=== PATIENT | female | born 1935 | race Caucasian/White ===

== ENCOUNTER 2022-09-09 08:32 | Observation (INO) | payer MEDICARE ==
[2022-09-09] MEDS ORDERED: SODIUM CHLORIDE 0.9% 1,000 ML IV STA (09:19)
[2022-09-09] MEDS ORDERED: SODIUM CHLORIDE 0.9% 500 ML 500 ML IV STA (09:26)
[2022-09-09 09:30] LABS: Basophils # (A) 0.1 k/uL (0-0.2); Basophils % (A) 1 %; Eosinophils # (A) 0.3 k/uL (0-0.7); Eosinophils % (A) 4 %; HCT 34.4 % (34.0-46.0); HGB 11.6 gm/dL (11.4-16.0); Lymphocytes # (A) 1.4 k/uL (1.0-4.8); Lymphocytes % (A) 23 %; MCH 32.6 pg (25.0-35.0); MCHC 33.8 g/dL (31.0-37.0); MCV 96.5 fL (80.0-100.0); Mean Platelet Volume 9.4; Monocytes # (A) 0.5 k/uL (0-1.0); Monocytes % (A) 9 %; Neutrophils # (A) 3.8 k/uL (1.3-7.7); Neutrophils % (A) 62 %; Platelet Count 236 k/uL (150-450); RBC 3.56 m/uL (3.80-5.40); RDW 15.1 % (11.5-15.5); WBC 6.1 k/uL (3.8-10.6)
--- NOTE | 2022-09-09 09:31 | ED ---
General Adult HPI - General Chief complaint: Dizziness Stated complaint: Dizzy, weakness Time Seen by Provider: 09/09/22 09:05 Source: patient, family, RN notes reviewed, old records reviewed Mode of arrival: ambulatory Limitations: no limitations - History of Present Illness Initial comments: Patient is an 87-year-old female who presents emergency Department complaining of continued lightheadedness/dizziness. Just was discharged from another hospital after staying for over a week for workup. Patient's daughter presents with the patient help with history. She states that they did do CT imaging the brain, and a thorough workup and found no obvious cause for the patient's dizziness/lightheadedness. Is discharged home. Symptoms continue which is why she presents today. Past medical history includes hypertension, congestive heart failure. No known history of atrial fibrillation. Not on blood thinners. No falls. Describes the dizziness as more of a lightheaded feeling, states it is worse when she sits up and stands up. It comes and goes with no known provocative or palliative factors other than lying down improves it. Describes it as a head heavy sensation. Denies any room spinning sensation. Denies any other associated symptoms. States she and her minimally does have some mild blurry vision in both eyes which resolves as well. Denies any headaches. Denies any nasal congestion. Denies any ear pain. Denies sore throat. Denies fevers, chills, cough, sick contacts. Denies any chest pain or shortness of breath. Denies any abdominal pain, nausea, vomiting. Patient intermittently does get abdominal pain and is due to have her gallbladder removed, however this is more of an outpatient process and is due to follow up with Dr. Tracy. Family specifically requests that Dr. Andre not be consulted. No other acute com plaints at this time. Patiently presents today over concern for continued symptoms which never resolved after previous admission to the hospital. We're currently approximately 3-4 weeks into symptom onset.Patient currently is asymptomatic. - Related Data Allergies Allergy/AdvReac Type Severity Reaction Status Date / Time No Known Allergies Allergy Verified 09/09/22 08:40 Review of Systems ROS Statement: Those systems with pertinent positive or pertinent negative responses have been documented in the HPI. Review of Systems: CONST: Denies fever EYES: Denies blurry vision ENT: Denies nasal congestion C/V: Denies Chest pain RESP: Denies shortness of breath GI: Denies abdominal pain : Denies dysuria SKIN: Denies rash. MSK: Denies joint pain. NEURO: Denies headache ROS Other: All systems not noted in ROS Statement are negative. Past Medical History Past Medical History: Hyperlipidemia, Hypertension History of Any Multi-Drug Resistant Organisms: None Reported Past Surgical History: No Surgical Hx Reported Past Psychological History: No Psychological Hx Reported Smoking Status: Current every day smoker Past Alcohol Use History: None Reported Past Drug Use History: None Reported General Exam - General Exam Comments Initial Comments: General: Appears in no acute distress. HEAD: Normal with no signs of head trauma. EYES: PERRLA, EOMI, conjunctiva normal, no discharge. Pupils 2 mm and equal bilaterally. ENT: Hearing grossly intact, normal oropharynx. RESPIRATORY: Clear breath sounds bilaterally. No wheezes, rales, or rhonchi. C/V: Irregular rate and rhythm. S1 and S2 auscultated, no edema, peripheral pulses 2+ and intact throughout ABD: Abd is soft, nontender, nondistended EXT: Normal range of motion, no obvious deformity SKIN: No rashes or lesions observed on exposed skin. NEURO: Alert and oriented x 4. Cranial nerves II-XII intact. No focal sensory or strength deficits. GCS of 15. NIH of 0. Limitations: no limitations Course Vital Signs 09/09/22 09/09/22 08:37 09:30 Temperature 97.7 F Pulse Rate 105 H 87 Respiratory 20 Rate Blood Pressure 149/73 153/93 O2 Sat by Pulse 97 98 Oximetry Medical Decision Making - Medical Decision Making Based on the patient's presentation and physical exam, patient appears to be experiencing lightheadedness sensation which was thoroughly worked up at another hospital with no clear etiology. Presents today with continued symptoms. Screening EKG done in triage shows atrial fibrillation which appears to be new onset as the patient has no known history of that. Vital signs are otherwise within acceptable limits. We will obtain cardiopulmonary labs as well as chest x-ray, screening CT due to the Lauren fib findings. We will attempt to obtain records from the other hospital as well. She was in agreement this plan. Currently is asymptomatic. No known contraindications to blood thinner medications. EKG shows atrial fibrillation, rate controlled.Chest x-ray shows no acute cardiopulmonary process. Brain CT shows atrophy with white matter ischemic changes, recommend MRI as clinically indicated. Laboratory studies are remarkable for an undetectable troponin. Covid is negative. Urinalysis is still pending at this time. Remainder the labs are unremarkable. Patient will be given an aspirin. At this time we did discuss that her new onset atrial fibrillation is likely cause of her symptoms. She will be admitted for evaluation by cardiology. She was in agreement this plan. She has no contraindications to anticoagulation at this time and will be started on heparin drip until further evaluated by cardiology. She was in agreement with this plan as well. Remains asymptomatic at this time. Cardiology was consulted. I did speak with Dr. East who is covering for Dr. Waggoner and was the patient's physician while at the other hospital, was in agreement with the admission. - Lab Data Result diagrams: 09/09/22 09:22 09/09/22 09:22 Lab Results 09/09/22 09/09/22 09/09/22 Range/Units 09:22 09:22 09:22 WBC 6.1 (3.8-10.6) k/uL RBC 3.56 L (3.80-5.40) m/uL Hgb 11.6 (11.4-16.0) gm/dL Hct 34.4 (34.0-46.0) % MCV 96.5 (80.0-100.0) fL MCH 32.6 (25.0-35.0) pg MCHC 33.8 (31.0-37.0) g/dL RDW 15.1 (11.5-15.5) % Plt Count 236 (150-450) k/uL MPV 9.4 Neutrophils % 62 % Lymphocytes % 23 % Monocytes % 9 % Eosinophils % 4 % Basophils % 1 % Neutrophils # 3.8 (1.3-7.7) k/uL Lymphocytes # 1.4 (1.0-4.8) k/uL Monocytes # 0.5 (0-1.0) k/uL Eosinophils # 0.3 (0-0.7) k/uL Basophils # 0.1 (0-0.2) k/uL PT 10.6 (9.0-12.0) sec INR 1.0 (<1.2) APTT 22.9 (22.0-30.0) sec Sodium 139 (137-145) mmol/L Potassium 4.0 (3.5-5.1) mmol/L Chloride 112 H (98-107) mmol/L Carbon Dioxide 17 L (22-30) mmol/L Anion Gap 10 mmol/L BUN 12 (7-17) mg/dL Creatinine 1.21 H (0.52-1.04) mg/dL Est GFR (CKD-EPI)AfAm 47 (>60 ml/min/1.73 sqM) Est GFR (CKD-EPI)NonAf 41 (>60 ml/min/1.73 sqM) Glucose 121 H (74-99) mg/dL Plasma Lactic Acid Malachi (0.7-2.0) mmol/L Calcium 8.9 (8.4-10.2) mg/dL Total Bilirubin 0.6 (0.2-1.3) mg/dL AST 37 H (14-36) U/L ALT 38 H (4-34) U/L Alkaline Phosphatase 109 (38-126) U/L Troponin I (0.000-0.034) ng/mL Total Protein 6.1 L (6.3-8.2) g/dL Albumin 3.8 (3.5-5.0) g/dL Coronavirus (PCR) (Not Detectd) 09/09/22 09/09/22 09/09/22 Range/Units 09:22 09:22 09:22 WBC (3.8-10.6) k/uL RBC (3.80-5.40) m/uL Hgb (11.4-16.0) gm/dL Hct (34.0-46.0) % MCV (80.0-100.0) fL MCH (25.0-35.0) pg MCHC (31.0-37.0) g/dL RDW (11.5-15.5) % Plt Count (150-450) k/uL MPV Neutrophils % % Lymphocytes % % Monocytes % % Eosinophils % % Basophils % % Neutrophils # (1.3-7.7) k/uL Lymphocytes # (1.0-4.8) k/uL Monocytes # (0-1.0) k/uL Eosinophils # (0-0.7) k/uL Basophils # (0-0.2) k/uL PT (9.0-12.0) sec INR (<1.2) APTT (22.0-30.0) sec Sodium (137-145) mmol/L Potassium (3.5-5.1) mmol/L Chloride (98-107) mmol/L Carbon Dioxide (22-30) mmol/L Anion Gap mmol/L BUN (7-17) mg/dL Creatinine (0.52-1.04) mg/dL Est GFR (CKD-EPI)AfAm (>60 ml/min/1.73 sqM) Est GFR (CKD-EPI)NonAf (>60 ml/min/1.73 sqM) Glucose (74-99) mg/dL Plasma Lactic Acid Malachi 1.4 (0.7-2.0) mmol/L Calcium (8.4-10.2) mg/dL Total Bilirubin (0.2-1.3) mg/dL AST (14-36) U/L ALT (4-34) U/L Alkaline Phosphatase (38-126) U/L Troponin I <0.012 (0.000-0.034) ng/mL Total Protein (6.3-8.2) g/dL Albumin (3.5-5.0) g/dL Coronavirus (PCR) Not Detected (Not Detectd) - EKG Data -: EKG Interpreted by Me EKG Comments: 12-lead Electrocardiogram Interpretation Note EKG was reviewed and interpreted by myself. 12-lead ECG performed at 0856 is interpreted by me as revealing atrial fibrillation at a rate of 90 beats per minute. Wyckoff is normal. QRS duration is 89 ms, QTc is 425 ms.. There were no ST or T wave abnormalities to suggest myocardial ischemia or injury. R wave progression across the precordium was satisfactory. By my interpretation this EKG is non-diagnostic for acute ischemia. No prior EKG for comparison. Critical Care Time Critical Care Time: Yes Total Critical Care Time: 35 Critical Care Time: Upon my evaluation, this patient had a high probability of imminent or life- threatening deterioration due to new-onset A. fib, heparin initiation, which required my direct attention, intervention, and personal management. I have personally provided 35 minutes of critical care time exclusive of time spent on separately billable procedures. Time includes review of laboratory data, radiology results, discussion with consultants, and monitoring for potential decompensation. Interventions were performed as documented in my note. Disposition Clinical Impression: Atrial fibrillation, Lightheadedness Disposition: ADMITTED IP TO THIS HOSP Condition: Stable Referrals: Israel Waggoner MD [Primary Care Provider] - 1-2 days Time of Disposition: 10:30
[2022-09-09 09:44] LABS: Albumin 3.8 g/dL (3.5-5.0); Calcium 8.9 mg/dL (8.4-10.2); Total Bilirubin 0.6 mg/dL (0.2-1.3); Total Protein 6.1 g/dL (6.3-8.2)
[2022-09-09 09:48] LABS: Partial Thromboplastin Time 22.9 sec (22.0-30.0); Prothrombin Time 10.6 sec (9.0-12.0)
--- NOTE | 2022-09-09 10:04 | CT ---
EXAMINATION TYPE: CT brain wo con DATE OF EXAM: 09/09/2022 COMPARISON: INDICATION: Dizziness, weakness DLP: 1090.2 mGycm, Automated exposure control for dose reduction was used. CONTRAST: None CT of the brain is performed utilizing 3 mm thick sections through the posterior fossa and 3 mm thick sections through the remaining calvarium. Study is performed within 24 hours of arrival to the hosp ital. No abnormal hyperdensity is present to suggest an acute intracranial hemorrhage. No mass lesion is evident. No acute infarcts are evident. There are some scattered periventricular white matter hypodensity, mos t likely chronic white matter ischemic changes Ventricles and sulci are prominent for the patient age. There is opacification of the right sphenoid sinus. Philomena bullosa is present. There may be opacifica tion of the right. Some minimal mucosal thickening may be within right mid ethmoid air cells. Remaini ng paranasal sinuses and mastoid air cells are clear. IMPRESSIONS: 1. Atrophy with mild periventricular white matter ischemic changes. Follow-up MRI can be performed as clinically indicated.
--- NOTE | 2022-09-09 10:21 | XR ---
EXAMINATION TYPE: XR chest 2V DATE OF EXAM: 09/09/2022 COMPARISON: None HISTORY: 87-year-old female atrial fibrillation TECHNIQUE: AP and lateral views FINDINGS: Heart normal size. Aorta and pulmonary vasculature within normal limits. Mild hyperinflation. Surgica l clips right axilla. No consolidation or pleural effusion. IMPRESSION: Mild hyperinflation may relate to depth of inspiration or underlying emphysema. No acute process othe rwise seen.
[2022-09-09] MEDS ORDERED: HEPARIN SODIUM 1,000 UN/ML (10ML VL) IV PRN (10:35)
[2022-09-09] MEDS ORDERED: HEPARIN SODIUM 1,000 UN/ML (10ML VL) IV ONE (10:35)
[2022-09-09] MEDS ORDERED: ASPIRIN 81 MG PO STA (10:35)
[2022-09-09] MEDS ORDERED: NALOXONE 0.4 MG/ML 1 ML VIAL IV PRN (10:36)
[2022-09-09] MEDS ORDERED: HEPARIN SOD,PORK IN 0.45% NACL 25,000 UNIT in 0.45% NACL 1 250ML.BAG IV SCH (10:45)
[2022-09-09] MEDS ORDERED: KETOROLAC 15 MG/ML 1 ML VIAL IVP STA (10:45)
--- NOTE | 2022-09-09 11:43 | P.HPIM ---
History of Present Illness 87-year-old pleasant female was recently discharged from [facility] after she was extensively evaluated for vertigo and syncope. 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 Patient comes in here with an episode of dizziness found to be in atrial fibrillation but rate controlled patient was started on anticoagulation with the consulted cardiology admitted for monitoring overnight patient dizziness presently resolved still in A. fib rate controlled. REVIEW OF SYSTEMS: CONSTITUTIONAL: No fever, no malaise, no fatigue. HEENT: No recent visual problems or hearing problems. Denied any sore throat. CARDIOVASCULAR: No chest pain, orthopnea, PND, no palpitations, no syncope. PULMONARY: No shortness of breath, no cough, no hemoptysis. GASTROINTESTINAL: No diarrhea, no nausea, no vomiting, no abdominal pain. NEUROLOGICAL: No headaches, no weakness, no numbness. HEMATOLOGICAL: Denies any bleeding or petechiae. GENITOURINARY: Denies any burning micturition, frequency, or urgency. MUSCULOSKELETAL/RHEUMATOLOGICAL: Denies any joint pain, swelling, or any muscle pain. ENDOCRINE: Denies any polyuria or polydipsia. The rest of the 14-point review of systems is negative. PHYSICAL EXAMINATION: GENERAL: The patient is alert and oriented x3, not in any acute distress. Well developed, well nourished. HEENT: Pupils are round and equally reacting to light. EOMI. No scleral icterus. No conjunctival pallor. Normocephalic, atraumatic. No pharyngeal erythema. No thyromegaly. CARDIOVASCULAR: S1 and S2 present. No murmurs, rubs, or gallops. Irregularly irregular rhythm PULMONARY: Chest is clear to auscultation, no wheezing or crackles. ABDOMEN: Soft, nontender, nondistended, normoactive bowel sounds. No palpable organomegaly. MUSCULOSKELETAL: No joint swelling or deformity. EXTREMITIES: No cyanosis, clubbing, or pedal edema. NEUROLOGICAL: Gross neurological examination did not reveal any focal deficits. SKIN: No rashes. Assessment and plan -Dizziness, near syncopal episodes most probably secondary to atrial fibrillation patient will be continued on anti-correlation cardiology will evaluate the patient patient the will be started on a beta taylor. Hyperlipemia -Hypertension next -creatinine patient creatinine during her last discharged from [facility] was within normal limits patient will be hydrated with half-normal saline because of elevated chloride from IV fluids, IV normal saline [place]-noniron gap metabolic acidosis secondary to hyperchloremia. While acute renal failure DVT prophylaxis: Patient on anti-correlation with heparin Past Medical History Past Medical History: Hyperlipidemia, Hypertension History of Any Multi-Drug Resistant Organisms: None Reported Past Surgical History: No Surgical Hx Reported Past Psychological History: No Psychological Hx Reported Smoking Status: Current every day smoker Past Alcohol Use History: None Reported Past Drug Use History: None Reported Medications and Allergies Allergies Allergy/AdvReac Type Severity Reaction Status Date / Time No Known Allergies Allergy Verified 09/09/22 08:40 Physical Exam Vitals: Vital Signs Temp Pulse Resp BP Pulse Ox 09/09/22 09:30 87 153/93 98 09/09/22 08:37 97.7 F 105 H 20 149/73 97 Intake and Output 09/08/22 09/09/22 09/09/22 22:59 06:59 14:59 Other: Weight 77.111 kg Results CBC & Chem 7: 09/09/22 09:22 09/09/22 09:22 Labs: Abnormal Lab Results - Last 24 Hours (Table) 09/09/22 09/09/22 Range/Units 09:22 09:22 RBC 3.56 L (3.80-5.40) m/uL Chloride 112 H (98-107) mmol/L Carbon Dioxide 17 L (22-30) mmol/L Creatinine 1.21 H (0.52-1.04) mg/dL Glucose 121 H (74-99) mg/dL AST 37 H (14-36) U/L ALT 38 H (4-34) U/L Total Protein 6.1 L (6.3-8.2) g/dL
[2022-09-09] MEDS: METOPROLOL TARTRATE 25 MG TAB PO SCH ×2 (12:12→21:02)
--- NOTE | 2022-09-09 13:21 | P.CRDCN ---
History of Present Illness Consult date: 09/09/22 History of present illness: HISTORY OF PRESENT ILLNESS: This is a 87 year old female with a past medical history significant for hypertension and hyperlipidemia. Patient does not follow with a paper folder. We have been asked to see the patient in consultation for atrial fibrillation. Patient examined at the bedside. Patient was recently hospitalized at [facility] from August 30 until September 07 secondary to dizziness. She was evaluated by neurology. She states that she underwent an MRI which was negative for an acute CVA. She also underwent an echocardiogram revealing normal LV systolic function with EF 55%. Patient was discharged in stable condition. She reported back to the hospital today with a chief complaint of dizziness and palpitations. She denies any episodes of syncope. The patient was found to be in atrial fibrillation. The patient denies a previous history of atrial fibrillation. She denies any history of CAD or CHF. She is a nonsmoker. She is nondiabetic. She denies any alcohol use. She denies any drug use including marijuana. * EKG reveals atrial fibrillation with controlled ventricular rate * Chest xray mild hyperinflation may relate to depth of inspiration or underlying emphysema. No acute process otherwise seen. * Laboratory data: WBC 6.1. Hemoglobin 11.6. Platelet count 236. Sodium 139. Potassium 4.0. BUN 12. Creatinine 1.21. Troponin negative 1. * Current home cardiac medications include Lipitor 40 mg at night, metoprolol tartrate 25 mg twice a day, aspirin 325 mg daily REVIEW OF SYSTEMS: At the time of my exam: CONSTITUTIONAL: Denies fever or chills. HEENT: Denies blurred vision, vision changes, or eye pain. Denies hemoptysis CARDIOVASCULAR: Denies chest pain. Denies orthopnea. Denies PND. Denies palpitations RESPIRATORY: Denies shortness of breath. GASTROINTESTINAL: Denies abdominal pain. Denies nausea or vomiting. HEMATOLOGIC: Denies bleeding disorders. GENITOURINARY: Denies any blood in urine. SKIN: Denies pruitis. Denies rash. PHYSICAL EXAM: VITAL SIGNS: Reviewed. GENERAL: Well-developed in no acute distress. HEENT: Head is normocephalic. Pupils are equal, round. Sclerae anicteric. Mucous membranes of the mouth are moist. Neck supple. No JVD or thyromegaly LUNGS: Respirations even and unlabored. Lungs essentially clear to auscultation bilaterally. HEART: Irregular rate and rhythm. S1 and S2 heard. ABDOMEN: Soft. Nondistended. Nontender. EXTREMITIES: Normal range of motion. No clubbing or cyanosis. Peripheral pulses intact. No lower extremity edema NEUROLOGIC: Awake and alert. Oriented x 3. ASSESSMENT: Dizziness and palpitations New-onset atrial fibrillation with controlled ventricular rate, duration unknown Hypertension Hyperlipidemia PLAN: No need to repeat echo as this was performed at [facility] revealing normal EF Check TSH Discontinue IV heparin Begin Eliquis 5mg BID Continue metoprolol 25mg BID Continue telemetry monitoring Further recommendations pending patient course Nurse practitioner note has been reviewed by physician. Signing provider agrees with the documented findings, assessment, and plan of care. Past Medical History Past Medical History: Hyperlipidemia, Hypertension History of Any Multi-Drug Resistant Organisms: None Reported Past Surgical History: No Surgical Hx Reported Past Psychological History: No Psychological Hx Reported Smoking Status: Current every day smoker Past Alcohol Use History: None Reported Past Drug Use History: None Reported Medications and Allergies Home Medications Medication Instructions Recorded Confirmed Type Aspirin EC [Ecotrin] 325 mg PO DAILY 09/09/22 09/09/22 History Atorvastatin [Lipitor] 40 mg PO HS 09/09/22 09/09/22 History Folic Acid 1 mg PO DAILY 09/09/22 09/09/22 History Indomethacin [Indocin] 50 mg PO DAILY PRN 09/09/22 09/09/22 History Metoclopramide [Reglan] 10 mg PO ACHS PRN 09/09/22 09/09/22 History Metoprolol Tartrate [Lopressor] 25 mg PO AC-BID 09/09/22 09/09/22 History Ondansetron Odt [Zofran Odt] 4 mg PO Q8HR PRN 09/09/22 09/09/22 History allopurinoL [Zyloprim] 100 mg PO DAILY 09/09/22 09/09/22 History calcitrioL [Calcitriol] 0.5 mcg PO MO 09/09/22 09/09/22 History Allergies Allergy/AdvReac Type Severity Reaction Status Date / Time No Known Allergies Allergy Verified 09/09/22 12:16 Physical Exam Vitals: Vital Signs Temp Pulse Resp BP Pulse Ox 09/09/22 12:00 92 18 153/93 97 09/09/22 09:30 87 153/93 98 09/09/22 08:37 97.7 F 105 H 20 149/73 97 Intake and Output 09/08/22 09/09/22 09/09/22 22:59 06:59 14:59 Other: Weight 77.111 kg Results 09/09/22 09:22 09/09/22 09:22 Cardiac Enzymes 09/09/22 09/09/22 Range/Units 09:22 09:22 AST 37 H (14-36) U/L Troponin I <0.012 (0.000-0.034) ng/mL Coagulation 09/09/22 Range/Units 09:22 PT 10.6 (9.0-12.0) sec APTT 22.9 (22.0-30.0) sec CBC 09/09/22 Range/Units 09:22 WBC 6.1 (3.8-10.6) k/uL RBC 3.56 L (3.80-5.40) m/uL Hgb 11.6 (11.4-16.0) gm/dL Hct 34.4 (34.0-46.0) % Plt Count 236 (150-450) k/uL Comprehensive Metabolic Panel 09/09/22 Range/Units 09:22 Sodium 139 (137-145) mmol/L Potassium 4.0 (3.5-5.1) mmol/L Chloride 112 H (98-107) mmol/L Carbon Dioxide 17 L (22-30) mmol/L BUN 12 (7-17) mg/dL Creatinine 1.21 H (0.52-1.04) mg/dL Glucose 121 H (74-99) mg/dL Calcium 8.9 (8.4-10.2) mg/dL AST 37 H (14-36) U/L ALT 38 H (4-34) U/L Alkaline Phosphatase 109 (38-126) U/L Total Protein 6.1 L (6.3-8.2) g/dL Albumin 3.8 (3.5-5.0) g/dL Current Medications Generic Name Dose Route Start Last Admin Trade Name Freq PRN Reason Stop Dose Admin Heparin Sodium (Porcine) 0 unit 09/09/22 10:35 Heparin Sodium 1,000 Un/Ml (10ml Vl) IV PER PROTOCOL PRN Low PTT Protocol Heparin Sodium/Sodium Chloride 250 mls @ 9.253 mls/hr 09/09/22 10:45 09/09/22 11:18 25,000 unit/ Sodium Chloride IV 12 units/kg/hr .Q24H NIMO 9.253 mls/hr Administration Protocol 12 UNITS/KG/HR Metoprolol Tartrate 25 mg 09/09/22 11:45 09/09/22 12:12 Metoprolol Tartrate 25 Mg Tab PO 25 mg BID NIMO Administration Naloxone HCl 0.2 mg 09/09/22 10:36 Naloxone 0.4 Mg/Ml 1 Ml Vial IV Q2M PRN Opioid Reversal Intake and Output 09/08/22 09/09/22 09/09/22 22:59 06:59 14:59 Other: Weight 77.111 kg Patient Weight 09/10/22 06:59 Weight 77.111 kg 09/09/22 09:22 09/09/22 09:22
[2022-09-09] MEDS: APIXABAN 5 MG TAB PO SCH ×2 (15:20→21:04)
[2022-09-09] MEDS: ATORVASTATIN 40 MG TAB PO SCH (21:02)
[2022-09-09 22:11] LABS: Appearance,Urine Clear (Clear); Bilirubin,Urine Negative (Negative); Blood,Urine Negative (Negative); Color,Urine Light Yellow; Glucose,Urine (UA) Negative (Negative); Ketones,Urine Negative (Negative); Leukocyte Esterase,Urine Negative (Negative); Nitrite,Urine Negative (Negative); PH, Urine 5.5 (5.0-8.0); Protein,Urine Negative (Negative); Specific Gravity,Urine 1.012 (1.001-1.035); Urobilinogen,Urine <2.0 mg/dL (<2.0)
[2022-09-10] MEDS: METOPROLOL TARTRATE 25 MG TAB PO SCH ×2 (09:12→20:33)
[2022-09-10] MEDS: APIXABAN 5 MG TAB PO SCH ×2 (09:13→20:33)
[2022-09-10 10:41] LABS: Calcium 8.4 mg/dL (8.4-10.2); Potassium 4.2 mmol/L (3.5-5.1)
--- NOTE | 2022-09-10 13:32 | P.PN ---
Subjective Progress Note Date: 09/10/22 HISTORY OF PRESENT ILLNESS: This is a 87 year old female with a past medical history significant for hypertension and hyperlipidemia. 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 We have been asked to see the patient in consultation for atrial fibrillation. Patient examined at the bedside. Patient was recently hospitalized at [facility] from August 30 until September 07 secondary to dizziness. She was evaluated by neurology. She states that she underwent an MRI which was negative for an acute CVA. She also underwent an echocardiogram revealing normal LV systolic function with EF 55%. Patient was discharged in stable condition. She reported back to the hospital today with a chief complaint of dizziness and palpitations. She denies any episodes of syncope. The patient was found to be in atrial fibrillation. The patient denies a previous history of atrial fibrillation. She denies any history of CAD or CHF. She is a nonsmoker. She is nondiabetic. She denies any alcohol use. She denies any drug use including marijuana. * EKG reveals atrial fibrillation with controlled ventricular rate * Chest xray mild hyperinflation may relate to depth of inspiration or underlying emphysema. No acute process otherwise seen. * Laboratory data: WBC 6.1. Hemoglobin 11.6. Platelet count 236. Sodium 139. Potassium 4.0. BUN 12. Creatinine 1.21. Troponin negative 1. * Current home cardiac medications include Lipitor 40 mg at night, metoprolol tartrate 25 mg twice a day, aspirin 325 mg daily 09/10/2022 Patient examined this morning at the bedside. Patient denies chest pain or pressure. She denies shortness of breath. Telemetry reveals atrial fibrillation with controlled ventricular rate. TSH normal at 2.5. PHYSICAL EXAM: VITAL SIGNS: Reviewed. GENERAL: Well-developed in no acute distress. HEENT: Head is normocephalic. Pupils are equal, round. Sclerae anicteric. Mucous membranes of the mouth are moist. Neck supple. No JVD or thyromegaly LUNGS: Respirations even and unlabored. Lungs essentially clear to auscultation bilaterally. HEART: Irregular rate and rhythm. S1 and S2 heard. ABDOMEN: Soft. Nondistended. Nontender. EXTREMITIES: Normal range of motion. No clubbing or cyanosis. Peripheral pulses intact. No lower extremity edema NEUROLOGIC: Awake and alert. Oriented x 3. ASSESSMENT: Dizziness and palpitations New-onset atrial fibrillation with controlled ventricular rate, duration unknown Hypertension Hyperlipidemia PLAN: No need to repeat echo as this was performed at [facility] revealing normal EF Continue current cardiac medications Continue anticoagulation with request Patient is stable for discharge home today from a cardiac standpoint She is to follow up on an outpatient basis Nurse practitioner note has been reviewed by physician. Signing provider agrees with the documented findings, assessment, and plan of care. Objective - Vital Signs Vital signs: Vital Signs Temp 98.0 F 09/10/22 03:47 Pulse 88 09/10/22 12:27 Resp 15 09/10/22 12:27 BP 105/55 09/10/22 12:27 Pulse Ox 94 L 09/10/22 12:27 FiO2 Intake & Output 09/09/22 09/10/22 09/10/22 18:59 06:59 18:59 Output Total 150 Balance -150 Weight 77.111 kg Output: Urine 150 Other: Voiding Method Toilet Toilet Toilet # Voids 1 2 - Labs CBC & Chem 7: 09/09/22 09:22 09/10/22 10:06 Labs: Abnormal Lab Results - Last 24 Hours (Table) 09/09/22 09/10/22 Range/Units 16:19 10:06 APTT 31.8 H (22.0-30.0) sec Chloride 110 H (98-107) mmol/L Carbon Dioxide 20 L (22-30) mmol/L Creatinine 1.15 H (0.52-1.04) mg/dL Glucose 107 H (74-99) mg/dL
[2022-09-10] MEDS ORDERED: MECLIZINE 12.5 MG TAB PO PRN (16:47)
--- NOTE | 2022-09-10 16:55 | P.PN ---
Subjective Progress Note Date: 09/10/22 87-year-old pleasant female was recently discharged from [facility] after she was extensively evaluated for vertigo and syncope. 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 Patient comes in here with an episode of dizziness found to be in atrial fibrillation but rate controlled patient was started on anticoagulation with the consulted cardiology admitted for monitoring overnight patient dizziness presently resolved still in A. fib rate controlled. 09/10/2022 Patient evaluated today sitting in bed with family at bedside. Continues in atrial fibrillation with rate controlled she has been started on lopressor and also eliquis has been started. Cardiology cleared for discharge. Family is concerned with ongoing dizziness and the cause of symptoms. She had recent MRI completed at [facility] which has been reviewed as reported previously. TSH within normal limits at 2.590. BUN 11 creatinine 1.15 today. Sodium 138, potassium 4.2. Patient continues with intermittent complaints of dizziness and today she states it makes her nauseas. physical therapy consultation has been requested. Antivert is also added. Review of Systems Constitutional: Denied any fatigue denied any fever. Cardio vascular: denied any chest pain, palpitations Gastrointestinal: denied any nausea, vomiting, diarrhea Pulmonary: Denied any shortness of breath cough Neurologic denied any new focal deficits All inpatient medications were reviewed and appropriate changes in these medications as dictated in the interval history and assessment and plan. PHYSICAL EXAMINATION: GENERAL: The patient is alert and oriented x3, not in any acute distress. Well developed, well nourished. HEENT: Pupils are round and equally reacting to light. EOMI. No scleral icterus. No conjunctival pallor. Normocephalic, atraumatic. No pharyngeal erythema. No thyromegaly. CARDIOVASCULAR: S1 and S2 present. No murmurs, rubs, or gallops. Irregularly irregular rhythm PULMONARY: Chest is clear to auscultation, no wheezing or crackles. ABDOMEN: Soft, nontender, nondistended, normoactive bowel sounds. No palpable organomegaly. MUSCULOSKELETAL: No joint swelling or deformity. EXTREMITIES: No cyanosis, clubbing, or pedal edema. NEUROLOGICAL: Gross neurological examination did not reveal any focal deficits. SKIN: No rashes. Assessment and plan -Dizziness, near syncopal episodes most probably secondary to atrial fibrillation. Patient is started on eliquis and beta taylor, cardiology cleared for discharge. Will check orthostatics. -Hyperlipidemia -Hypertension -Mild acute renal injury most likely prerenal from dehydration, she was discharged from [facility] recently with normal creatinine. Patient will be given 1/2 normal saline and repeat labs tomorrow. -nonanion gap metabolic acidosis secondary to hyperchloremia. -History melanoma DVT prophylaxis: Patient on anti-coagulation with heparin GI prophylaxis: Pepcid Full Code The impression and plan of care has been dictated by Fabiola Giron, Nurse Practitioner as directed. Dr. Kita MD I have performed a history and physical examination and medical decision making of this patient, discussed the same with the dictator, and agree with the dictators assessment and plan as written, documented as a scribe. Based on total visit time, I have performed more than 50% of this visit. Objective - Vital Signs Vital signs: Vital Signs Temp 98.0 F 09/10/22 03:47 Pulse 88 09/10/22 12:27 Resp 15 09/10/22 12:27 BP 105/55 09/10/22 12:27 Pulse Ox 94 L 09/10/22 12:27 FiO2 Intake & Output 09/09/22 09/10/22 09/10/22 18:59 06:59 18:59 Output Total 150 Balance -150 Weight 77.111 kg Output: Urine 150 Other: Voiding Method Toilet Toilet Toilet # Voids 1 2 - Labs CBC & Chem 7: 09/09/22 09:22 09/10/22 10:06 Labs: Abnormal Lab Results - Last 24 Hours (Table) 09/09/22 09/10/22 Range/Units 16:19 10:06 APTT 31.8 H (22.0-30.0) sec Chloride 110 H (98-107) mmol/L Carbon Dioxide 20 L (22-30) mmol/L Creatinine 1.15 H (0.52-1.04) mg/dL Glucose 107 H (74-99) mg/dL Assessment and Plan Time with Patient: Less than 30
[2022-09-10] MEDS ORDERED: SODIUM CHLORIDE 0.45% 1,000 ML IV SCH (17:00)
[2022-09-10] MEDS: FAMOTIDINE 20 MG TAB PO SCH (20:33)
[2022-09-10] MEDS: ATORVASTATIN 40 MG TAB PO SCH (20:33)
[2022-09-11] MEDS: FAMOTIDINE 20 MG TAB PO SCH (08:06)
[2022-09-11] MEDS: APIXABAN 5 MG TAB PO SCH (08:06)
[2022-09-11] MEDS: METOPROLOL TARTRATE 25 MG TAB PO SCH (08:06)
[2022-09-11 08:52] LABS: Albumin 3.7 g/dL (3.5-5.0); Calcium 8.3 mg/dL (8.4-10.2); Potassium 4.2 mmol/L (3.5-5.1); Total Bilirubin 0.6 mg/dL (0.2-1.3); Total Protein 5.9 g/dL (6.3-8.2)
--- NOTE | 2022-09-11 10:38 | P.PN ---
Subjective Progress Note Date: 09/11/22 HISTORY OF PRESENT ILLNESS: This is a 87 year old female with a past medical history significant for hypertension and hyperlipidemia. 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 We have been asked to see the patient in consultation for atrial fibrillation. Patient examined at the bedside. Patient was recently hospitalized at [facility] from August 30 until September 07 secondary to dizziness. She was evaluated by neurology. She states that she underwent an MRI which was negative for an acute CVA. She also underwent an echocardiogram revealing normal LV systolic function with EF 55%. Patient was discharged in stable condition. She reported back to the hospital today with a chief complaint of dizziness and palpitations. She denies any episodes of syncope. The patient was found to be in atrial fibrillation. The patient denies a previous history of atrial fibrillation. She denies any history of CAD or CHF. She is a nonsmoker. She is nondiabetic. She denies any alcohol use. She denies any drug use including marijuana. * EKG reveals atrial fibrillation with controlled ventricular rate * Chest xray mild hyperinflation may relate to depth of inspiration or underlying emphysema. No acute process otherwise seen. * Laboratory data: WBC 6.1. Hemoglobin 11.6. Platelet count 236. Sodium 139. Potassium 4.0. BUN 12. Creatinine 1.21. Troponin negative 1. * Current home cardiac medications include Lipitor 40 mg at night, metoprolol tartrate 25 mg twice a day, aspirin 325 mg daily 09/10/2022 Patient examined this morning at the bedside. Patient denies chest pain or pressure. She denies shortness of breath. Telemetry reveals atrial fibrillation with controlled ventricular rate. TSH normal at 2.5. 09/11/2022 Patient examined this morning at the bedside. Patient denies chest pain or pressure. Denies SOB. Telemetry reveals atrial fibrillation with controlled ventricular rates. Patient states her dizziness has resolved this morning. PHYSICAL EXAM: VITAL SIGNS: Reviewed. GENERAL: Well-developed in no acute distress. HEENT: Head is normocephalic. Pupils are equal, round. Sclerae anicteric. Mucous membranes of the mouth are moist. Neck supple. No JVD or thyromegaly LUNGS: Respirations even and unlabored. Lungs essentially clear to auscultation bilaterally. HEART: Irregular rate and rhythm. S1 and S2 heard. ABDOMEN: Soft. Nondistended. Nontender. EXTREMITIES: Normal range of motion. No clubbing or cyanosis. Peripheral pulses intact. No lower extremity edema NEUROLOGIC: Awake and alert. Oriented x 3. ASSESSMENT: Dizziness and palpitations New-onset atrial fibrillation with controlled ventricular rate, duration unknown Hypertension Hyperlipidemia PLAN: Continue current cardiac medications Patient is stable for discharge home today from a cardiac standpoint She is to follow up on an outpatient basis Nurse practitioner note has been reviewed by physician. Signing provider agrees with the documented findings, assessment, and plan of care. Objective - Vital Signs Vital signs: Vital Signs Temp 97.5 F L 09/11/22 08:07 Pulse 84 09/11/22 08:07 Resp 18 09/11/22 08:07 BP 148/76 09/11/22 08:07 Pulse Ox 97 09/11/22 09:24 FiO2 Intake & Output 09/10/22 09/11/22 09/11/22 18:59 06:59 18:59 Intake Total 180 Balance 180 Intake: Oral 180 Other: Voiding Method Toilet Toilet Toilet # Voids 3 - Labs CBC & Chem 7: 09/09/22 09:22 09/11/22 07:24 Labs: Abnormal Lab Results - Last 24 Hours (Table) 09/10/22 09/11/22 Range/Units 10:06 07:24 Chloride 110 H 110 H (98-107) mmol/L Carbon Dioxide 20 L (22-30) mmol/L Creatinine 1.15 H 1.23 H (0.52-1.04) mg/dL Glucose 107 H 117 H (74-99) mg/dL Calcium 8.3 L (8.4-10.2) mg/dL ALT 37 H (4-34) U/L Total Protein 5.9 L (6.3-8.2) g/dL
[2022-09-11 13:10] VITALS: BP 137/77; PULSE 85; RESP 16; TEMP 97.9
--- NOTE | 2022-09-13 12:33 | DS ---
DISCHARGE SUMMARY CHIEF COMPLAINT: Dizziness and lightheadedness with new onset atrial fibrillation. HISTORY OF PRESENT ILLNESS AND PHYSICAL EXAMINATION: Details of this lady's history and physical can be found in the initial workup. LABORATORY STUDIES: While she was in the hospital, she had laboratory studies, details of which can be found in the laboratory section of her chart. COURSE IN THE HOSPITAL: After admission, she was placed on bedrest, and started on intravenous fluids and seen by Cardiology. She converted to normal sinus rhythm. She was feeling well and not dizzy or lightheaded and was in normal sinus rhythm on the 2nd and felt that she could go home. She will go home on anticoagulation and she will follow up in the office in several days. FINAL DIAGNOSES: 1. New onset atrial fibrillation. 2. Dizziness. 3. History of multiple melanoma. OPERATIONS: None. CONSULTATION: Cardiology. She is improved. MMWENDY / INOCENTE: [id number] /
== END 2022-09-11 16:26 | disposition home or self-care (01) ==
LOC: EC 08:32 → 3SCARD 10:36
PROVIDERS: ADMIT Family Medicine; ATTEND Family Medicine
DX: R42 Dizziness and giddiness (principal); I48.91 Unspecified atrial fibrillation; N17.9 Acute kidney failure, unspecified; E87.20 Acidosis, unspecified; E87.8 Other disorders of electrolyte and fluid balance, not elsewhere classified; I11.0 Hypertensive heart disease with heart failure; I50.9 Heart failure, unspecified; F17.200 Nicotine dependence, unspecified, uncomplicated; E78.5 Hyperlipidemia, unspecified; J43.9 Emphysema, unspecified; Z20.822 Contact with and (suspected) exposure to COVID-19; Z79.82 Long term (current) use of aspirin; Z79.899 Other long term (current) drug therapy; Z85.820 Personal history of malignant melanoma of skin
CPT/HCPCS: 96366 ×2; 96361; 96365; 99291; 36415; 94760; 93005; 97161; 80053 ×2; 80048; 84443; 83605; 84484; 85025; 85610; 85730; 81003; 87635; 71046; 70450; G0378 ×3; J1644 ×2

== ENCOUNTER → 2023-01-29 | Outpatient (CLI) | payer MEDICARE ==
--- NOTE | 2023-01-29 12:56 | FL ---
ESOPHOGRAM. HISTORY: Dysphagia Esophagram was performed per the air contrast technique. The patient swallowed barium and effervesce nt crystals without difficulty or delay. Esophageal peristalsis and motility appear to be within normal limits. 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 There is a small reducible hiatal hernia. Subsequently single contrast cervical esophagram was performed which fails demonstrate evidence for a spiration penetration or mass. IMPRESSION: 1.There is a small reducible hiatal hernia. 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
== END | disposition home or self-care (01) ==
LOC: RADUSWWP 10:38
PROVIDERS: ATTEND Family Medicine
DX: K22.5 Diverticulum of esophagus, acquired (principal); K44.9 Diaphragmatic hernia without obstruction or gangrene
CPT/HCPCS: 74220